=== PATIENT | female | born 1970 | race Caucasian/White ===

== ENCOUNTER 2020-09-30 07:03 | Outpatient (REF) | payer OTHER, SELFPAY ==
[2020-09-30 08:06] LABS: Alanine Aminotransferase 27 U/L (0-31); Albumin Level 4.6 g/dL (3.5-5.0); Alkaline Phosphatase 90 U/L (39-117); Anion Gap 12 (12-20); Aspartate Amino Transferase 27 U/L (5-31); Bilirubin Total 0.6 mg/dL (0.0-1.0); Blood Urea Nitrogen 17 mg/dL (9-16); C Reactive Protein 0.66 mg/dL (< or = 0.50); Calcium 9.6 mg/dL (8.4-10.2); Carbon Dioxide 27 mmol/L (22-29); Chloride 106 mmol/L (96-108); Cholesterol 196 mg/dL; Estimated Glomerular Filt Rate > 60; Glucose Fasting 91 mg/dL (60-99); HDL Cholesterol 86 mg/dL; LDL Cholesterol Calculated 99 mg/dl; Potassium 4.2 mmol/L (3.3-5.1); Sodium 141 mmol/L (135-145); Total Protein 7.8 g/dL (6.5-8.0); Triglycerides 55 mg/dL
[2020-09-30 08:17] LABS: Vitamin D 25-OH Total 29.6 ng/mL (>30)
[2020-10-01 08:57] LABS: Thyroid Peroxidase Antibodies 522 IU/mL (<9)
== END 2020-09-30 07:04 | disposition home or self-care (01) ==
LOC: HO.LAB 07:03
PROVIDERS: PCP Internal Medicine; Visit Provider Internal Medicine
DX: Z00.00 Encounter for general adult medical examination without abnormal findings (principal); E55.9 Vitamin D deficiency, unspecified; R21 Rash and other nonspecific skin eruption
CPT/HCPCS: 36415; 80053; 80061; 82306; 84443; 86140; 86376

== ENCOUNTER 2020-10-02 16:15 | Outpatient (REF) | payer OTHER, SELFPAY ==
[2020-10-02 17:10] LABS: MANUAL DIFF FLAG NO
[2020-10-02 17:13] LABS: Basophils Absolute Auto 0.1 X10*3/uL (0.0-0.2); Basophils Percent Auto 0.7 % (0-2); Eosinophils Absolute Auto 0.5 X10*3/uL (0.0-0.4); Eosinophils Percent Auto 6.8 % (0-4); Hematocrit 40.7 % (37-47); Hemoglobin 13.4 g/dl (12.0-16.0); Imm Gran Abs Auto 0.01 X10*3/uL (0.00-0.03); Imm Gran Pct Auto 0.1 % (0.0-0.4); Lymphocytes Absolute Auto 2.6 X10*3/uL (1.2-4.9); Mean Corpuscular HGB Conc 32.9 g/dl (31.0-35.0); Mean Corpuscular Hemoglobin 29.8 pg (27.0-33.0); Mean Corpuscular Volume 90.6 fL (80-98); Mean Platelet Volume 10.2 fL (9.4-12.3); Monocytes Absolute Auto 0.4 X10*3/uL (0.1-1.2); Monocytes Percent Auto 6.2 % (2-11); Neutrophils Absolute Auto 3.3 X10*3/uL (2.0-8.3); Neutrophils Percent Auto 48.2 % (45-73); Platelet Count 268 X10*3/uL (160-400); Red Blood Count 4.49 X10*6/uL (4.20-5.50); Red Cell Distribution Width 12.3 % (11.0-16.0); White Blood Count 6.8 X10*3/uL (4.8-10.8)
[2020-10-02 17:31] LABS: Rheumatoid Factor < 15.0 IU/mL (<15.0)
[2020-10-02 18:01] LABS: Vitamin B12 575 pg/mL (200-900)
[2020-10-02 18:24] LABS: Erythrocyte Sedimentation Rate 12 MM/HR (0-20)
[2020-10-03 13:32] LABS: Anti Nuclear Antibody Screen NEGATIVE (NEGATIVE)
== END 2020-10-02 16:16 | disposition home or self-care (01) ==
LOC: HO.LAB 16:15
PROVIDERS: PCP Internal Medicine; Visit Provider Internal Medicine
DX: R53.83 Other fatigue (principal); R63.5 Abnormal weight gain; E06.9 Thyroiditis, unspecified
CPT/HCPCS: 36415; 82607; 84439; 85025; 85652; 86038; 86039; 86431

== ENCOUNTER 2020-10-10 07:56 | Outpatient (REF) | payer OTHER, SELFPAY ==
--- NOTE | ~2020-10-10 | MM_ITS ---
EXAMINATION: MM SCREENING DIGITAL BREAST TOMOSYNTHESIS, BILATERAL CLINICAL INFORMATION: Screening. Asymptomatic. The lifetime risk of breast cancer based on the Tyrer-Cuzick Model is 13%. COMPARISON: Mammography: 10/25/2018, 12/17/2013 TECHNIQUE: Digital breast tomosynthesis is performed in both the craniocaudal and mediolateral oblique views along with computer-aided detection (CAD). Synthesized 2D images are generated from the tomosynthesis. FINDINGS: The breasts are heterogeneously dense, which may obscure small masses (ACR BI-RADS breast composition Category c). Parenchymal pattern is similar to prior exams. Breast tissue composition borders on average fibroglandular. There is no interval mass or architectural abnormality. Again, there are chronic calcifications anterior central and upper outer right breast. No significant changes. The skin contours are smooth. MM/MM tomosynthesis screening BI IMPRESSION: No significant changes from prior exams. ASSESSMENT: BI-RADS 2: Benign RECOMMENDATION: Routine annual mammography screening. This patient's information was entered into a reminder system with a target due date for their next mammogram.
== END 2020-10-10 07:57 | disposition home or self-care (01) ==
LOC: HO.MAMMO 07:56
PROVIDERS: PCP Internal Medicine; Visit Provider Internal Medicine
DX: Z12.31 Encounter for screening mammogram for malignant neoplasm of breast (principal)
CPT/HCPCS: 77063; 77067

== ENCOUNTER → 2020-10-22 10:32 | Outpatient (REF) | payer OTHER, SELFPAY ==
--- NOTE | ~2020-10-22 | NM_ITS ---
EXAMINATION: NM THYROID UPTAKE AND SCAN CLINICAL INFORMATION: Acute thyroiditis. COMPARISON: No pertinent studies to compare. TECHNIQUE: Following the oral administration of 272 microcuries of I-123 sodium iodide, thyroid uptake was performed and expressed as a percentage of the administrated dose. Gamma scintillation camera images of the thyroid in the anterior and right and left anterior oblique views were obtained using a pinhole collimator following the administration of 10 mCi Tc-99m pertechnetate. FINDINGS: The uptake is 9.5% at 3.8 hours and 24% at 22.4 hours. Imaging the gland demonstrates a homogeneous appearance to the gland. No convincing evidence for defect. NM/NM thyroid w uptake IMPRESSION: Homogeneous-appearing gland. Uptakes are within normal limits. Correlation recommended clinically. Recovering thyroiditis would be a consideration.
== END ==
LOC: HO.NUCMED 10:32
PROVIDERS: PCP Internal Medicine; Visit Provider Internal Medicine
DX: E06.0 Acute thyroiditis (principal)
CPT/HCPCS: 78014; A9512; A9516

== ENCOUNTER 2020-10-31 15:17 | Outpatient (REF) | payer OTHER, SELFPAY ==
[2020-11-01 10:41] LABS: CT PCR NOT DETECTED (Not Detect.); NG PCR NOT DETECTED (Not Detect.)
[2020-11-01 11:58] LABS: BV Int Neg Control Negative (Negative); BV Int Pos Control Positive (Positive)
[2020-11-05 20:52] LABS: HPV mRNA E6/E7 rflx Not Detected (Not Detected)
== END 2020-10-31 15:18 | disposition home or self-care (01) ==
LOC: HO.LAB 15:17
PROVIDERS: Visit Provider Obstetrics & Gynecology
DX: Z30.433 Encounter for removal and reinsertion of intrauterine contraceptive device (principal); Z20.2 Contact with and (suspected) exposure to infections with a predominantly sexual mode of transmission
CPT/HCPCS: 58301; 87480; 87491; 87510; 87591; 87624; 87660; 88142

== ENCOUNTER → 2020-12-17 07:53 | Outpatient (BNVA) | payer OTHER, SELFPAY | PROVIDERS: PCP Internal Medicine; Visit Provider Nurse Practitioner Family ==

== ENCOUNTER 2021-02-17 06:20 | Day surgery (SDC) | payer OTHER, SELFPAY ==
[2021-02-10 14:43] VITALS: BMI 33.9
--- NOTE | 2021-02-16 10:04 | P.CONAN_ITS ---
Documented by User: Angie Mcneil NP 02/16/21 10:04 HPI - Anesthesia Eval Consult details Narrative: 50yo F for Colonoscopy [facility] [place] Past Medical History Medical History (Updated 02/17/21 @ 06:27 by Autumn Ribeiro RN) Asthma Thyroiditis Family History Family History Maternal Grandmother Breast cancer Maternal Grandfather Lymphoma Surgical History Surgical History Hx of section Social History Social History Alcohol intake: current Alcohol intake frequency: 0-2 drinks per day Alcohol type: wine Advance Directives Information Provided: No Gender identity: Female Meds Allergies Allergy/AdvReac Type Severity Reaction Status Date / Time fish Allergy Intermediate throat and Uncoded 02/17/21 06:26 tongue swelling some fruits and nuts Allergy Unknown Unknown Uncoded 02/17/21 06:26 Home Medications Medication Instructions Recorded Confirmed Last Taken Type albuterol sulfate 90 mcg/actuation 90 mcg INHALATION Q4-6H PRN 10/31/20 02/10/21 Unknown History aerosol inhaler cetirizine 10 mg tablet (24Hour 10 mg PO DAILY PRN 12/17/20 02/10/21 Unknown History Allergy) cholecalciferol (vitamin D3) 125 125 mcg PO DAILY 12/17/20 02/10/21 Unknown History mcg (5,000 unit) capsule (Dialyvite Vitamin D) epinephrine 0.3 mg/0.3 mL 0.3 mg IM DIRECTED 12/17/20 02/10/21 Unknown History injection, auto-injector [id number] 3.5 3 drp OTIC (EARS) ml 12/17/20 Unknown History mg-10,000 unit/mL-1 % ear drops,susp Exam Exam Date and Time: February 16, 2021 1004 Height,Weight and Vital Signs: Height 5 ft 5 in Weight 92.533 kg Pertinent Lab Results Pertinent Lab Results: Laboratory Tests 09/30/20 10/02/20 07:25 16:38 WBC 6.8 Hgb 13.4 Hct 40.7 Plt Count 268 Sodium 141 Potassium 4.2 Chloride 106 Carbon Dioxide 27 BUN 17 H Creatinine 0.77 Airway Adult Head Mouth w/Numbe Teeth: 1. Implants, glued Assessment and Plan Assessment Anesthesia Assessment: Chart Reviewed Documented by User: Santo Minaya MD 02/17/21 07:40 [facility] [place] Past Medical History Medical History (Updated 02/17/21 @ 06:27 by Autumn Ribeiro RN) Asthma Thyroiditis Family History Family History Maternal Grandmother Breast cancer Maternal Grandfather Lymphoma Family history of problems with anesthesia: No Surgical History Surgical History Hx of section History of Problems with Anesthesia: No Social History Social History Alcohol intake: current Alcohol intake frequency: 0-2 drinks per day Alcohol type: wine Advance Directives Information Provided: No Gender identity: Female Meds Allergies Allergy/AdvReac Type Severity Reaction Status Date / Time fish Allergy Intermediate throat and Uncoded 02/17/21 06:26 tongue swelling some fruits and nuts Allergy Unknown Unknown Uncoded 02/17/21 06:26 Home Medications Medication Instructions Recorded Confirmed Last Taken Type albuterol sulfate 90 mcg/actuation 90 mcg INHALATION Q4-6H PRN 10/31/20 02/10/21 Unknown History aerosol inhaler cetirizine 10 mg tablet (24Hour 10 mg PO DAILY PRN 12/17/20 02/10/21 Unknown History Allergy) cholecalciferol (vitamin D3) 125 125 mcg PO DAILY 12/17/20 02/10/21 Unknown History mcg (5,000 unit) capsule (Dialyvite Vitamin D) epinephrine 0.3 mg/0.3 mL 0.3 mg IM DIRECTED 12/17/20 02/10/21 Unknown History injection, auto-injector [id number]-cwasztkny 3.5 3 drp OTIC (EARS) ml 12/17/20 Unknown History mg-10,000 unit/mL-1 % ear drops,susp Exam Airway Mallampati Class: I TM Dist: >3cm Neck ROM: Full Adult Head Mouth w/Numbe Teeth: 2 1. Implants, glued Heart: RRR Assessment and Plan Assessment Anesthesia Assessment: Anesthesia Plan Discussed Final Anesthetic Review Family History of Problems with Anesthesia: No History of Problems with Anesthesia: No NPO: Yes ASA Class: II Final Preanesthetic Review: No Changes in Pt Med Stat, Meds/Allgs Chart Reviewed, Consent Obtained/Reviewed and Anes Risks/Benef Reviewed Patient Risk: Low Procedure Risk: Low Anesthetic Plan Anesthetic Plan: MAC: Disposition: Standard PACU
[2021-02-17 06:42] VITALS: BP 137/78; PULSE 66; RESP 16; TEMP 36.6; O2SAT 98
[2021-02-17] MEDS: Lactated Ringers 1,000 ML 100 ML IVCONT (06:50)
--- NOTE | 2021-02-17 07:32 | MHC.SHP ---
Pre-Procedural Eval Section A Date of Service: 02/17/21 The patient is an INPATIENT: No The History & Physical has been completed within 30 days and I have reviewed it.: No Section B Chief Complaint: screening Details of Present Illness: Colon cancer screening, chronic constipation, FH of colon polyps Relevant Family History (Specify if Yes): Yes Relevant Social History: None Present Medications: see Short Stay Collaborative assessment Medical History: Significant History (asthma) History of Previous Operations: Relevant previous surgery/procedure and date(s) (Status post ) Allergies: Allergies Allergy/AdvReac Type Severity Reaction Status Date / Time fish Allergy Intermediate throat and Uncoded 02/17/21 06:26 tongue swelling some fruits and nuts Allergy Unknown Unknown Uncoded 02/17/21 06:26 Review of Systems Sugical H&P ROS: Negative: Constitution, Cardiovascular and Respiratory and Yes, Specify: Gastrointestinal (constipation) Exam Surgical H&P Exam: Normal: Heart, Normal: Lungs, Normal: Extremities and Normal: Abdomen Plan Diagnosis/Plan: Unchanged I have reviewed the history and physical and performed a pertinent physical examination on my patient. No changes have occurred unless specified.
--- NOTE | 2021-02-17 07:47 | PM.OP ---
Brief Operative Note Date of Service: 02/17/21 Pre-op diagnosis: Colon cancer screening, family history of colon polyps Post-op diagnosis: other (Diverticulosis, hemorrhoids) Procedure: COLONOSCOPY TO CECUM Consent: Indications for the procedure and potential complications of bleeding, perforation, reaction to medications and missed diagnosis were discussed with the patient and informed consent was obtained. Instrument: Olympus PCF H 190 L variable stiffness pediatric colonoscope Monitoring: Vital signs and clinical assessment, intermittent blood pressure monitoring, continuous EKG monitoring, Pulse oximetry and Carbon Dioxide monitoring were done throughout the procedure. Colon withdrawl time was 21 minutes. Procedure: The patient was placed in the left lateral decubitis position and pre-procedure medications were administered. After a digital rectal examination of the ano-rectum, the video colonoscope was inserted into the rectum and advanced through the colon to the cecum. The colonoscope was slowly withdrawn in a retrograde panoramic fashion and the colon mucosa was carefully examined including a retroflexed view of the rectum. Findings and interventions are described below. Procedure Difficulty: Colon was long and tortuous and there was recurrent loop formation. Patient was placed in the supine position and left lower quadrant pressure was applied to intubate the transverse colon. Findings: Terminal Ileum: Not evaluated Cecum: Normal Ascending Colon: Normal Transverse Colon: Normal Descending Colon: Normal Sigmoid Colon: Moderate diverticulosis Rectum: Normal Ano-rectum: Moderate internal hemorrhoids Colon preparation: Good after copious irrigation Impression and Post Procedure Diagnosis: Colonoscopy Findings: No polyps were detected Moderate diverticulosis seen in the sigmoid colon Moderate hemorrhoids on retroflexed exam. Plan: Patient has an appointment on 03/03/21 in the GI Clinic with Alondra Bernard FNP-BC . Repeat Colonoscopy in 5 years due to family history of colon polyps (Dad). Adult colonoscope for future colonoscopies Above findings were reviewed with the patient and diverticulosis handout was given in the discharge area Surgeon: Suzanne Ware MD Anesthesia: MAC (Darshana Patino CRNA) Was an Diesel Engine Specialist used for this Procedure?: Yes Diesel Engine Specialist: Lilia Gallagher Estimated blood loss (mL): 0 Pathology: none sent Condition: stable Disposition: PACU
--- NOTE | 2021-02-17 08:37 | P.OP_ITS ---
Operative Note Operative Note Date of Service: 02/17/21 Narrative: Pre-op diagnosis:?Colon cancer screening, family history of colon polyps Post-op diagnosis:?other (Diverticulosis, hemorrhoids) Procedure:? COLONOSCOPY TO CECUM Consent: Indications for the procedure and potential complications of bleeding, perforation, reaction to medications and missed diagnosis were discussed with the patient and informed consent was obtained. Instrument: Olympus PCF H 190 L variable stiffness pediatric colonoscope Monitoring: Vital signs and clinical assessment, intermittent blood pressure monitoring, continuous EKG monitoring, Pulse oximetry and Carbon Dioxide monitoring were done throughout the procedure. Colon withdrawl time was 21 minutes. Procedure: The patient was placed in the left lateral decubitis position and pre-procedure medications were administered. After a digital rectal examination of the ano-rectum, the video colonoscope was inserted into the rectum and advanced through the colon to the cecum. The colonoscope was slowly withdrawn in a retrograde panoramic fashion and the colon mucosa was carefully examined including a retroflexed view of the rectum. Findings and interventions are described below. Procedure Difficulty:? Colon was long and tortuous and there was recurrent loop formation. Patient was placed in the supine position and left lower quadrant pressure was? applied to intubate the transverse colon. Findings: Terminal Ileum: Not evaluated Cecum:? Normal Ascending Colon:? Normal Transverse Colon:? Normal Descending Colon:? Normal Sigmoid Colon:? Moderate diverticulosis Rectum:? Normal Ano-rectum:? Moderate internal hemorrhoids Colon preparation:? Good? after copious irrigation Impression and Post Procedure Diagnosis: Colonoscopy Findings: No polyps were detected Moderate diverticulosis seen in the sigmoid colon Moderate hemorrhoids on retroflexed exam. Plan: Patient has an appointment on 03/03/21 in the GI Clinic with ? Alondra Bernard FNP-BC . Repeat Colonoscopy in 5 years due to family history of colon polyps (Dad). Adult colonoscope for future colonoscopies Above findings were reviewed with the patient and? diverticulosis handout was given in the discharge area Surgeon:?Suzanne Ware MD Anesthesia:?MAC (Darshana Patino, TAYLOR) Was an Distribution Field Engineer used for this Procedure?:?Yes Distribution Field Engineer:?Lilia Gallagher Estimated blood loss (mL):?0 Pathology:?none sent Condition:?stable Disposition:?PACU
[2021-02-17 08:38] VITALS: BP 104/59; PULSE 78; RESP 16; TEMP 36.1; O2SAT 98
[2021-02-17 08:53] VITALS: BP 109/61; PULSE 69; RESP 16; O2SAT 99
== END 2021-02-17 09:18 | disposition home or self-care (01) ==
PROVIDERS: PCP Internal Medicine Geriatric Medicine; Visit Provider Internal Medicine Gastroenterology
PROC: 0DJD8ZZ Inspection of Lower Intestinal Tract, Via Natural or Artificial Opening Endoscopic (ICD-10-PCS; CPT 45378; principal; 2021-02-17 07:30)
DX: Z12.11 Encounter for screening for malignant neoplasm of colon (principal); Z83.71 Family history of colonic polyps; K57.30 Diverticulosis of large intestine without perforation or abscess without bleeding; K64.8 Other hemorrhoids; J45.909 Unspecified asthma, uncomplicated; Z79.899 Other long term (current) drug therapy
CPT/HCPCS: 45378

== ENCOUNTER 2021-10-26 15:00 | Outpatient (REF) | payer OTHER, SELFPAY ==
--- NOTE | ~2021-10-26 | MM_ITS ---
EXAMINATION: MM SCREENING DIGITAL BREAST TOMOSYNTHESIS, BILATERAL CLINICAL INFORMATION: Screening. Asymptomatic. The lifetime risk of breast cancer based on the Tyrer-Cuzick Model is 12%. COMPARISON: Mammography: 10/10/2020, 11/13/2018, 12/17/2013 TECHNIQUE: Digital breast tomosynthesis is performed in both the craniocaudal and mediolateral oblique views along with computer-aided detection (CAD). Synthesized 2D images are generated from the tomosynthesis. Additional left MLO view is provided. FINDINGS: The breasts are heterogeneously dense, which may obscure small masses (ACR BI-RADS breast composition Category c). There are diffuse calcifications central and upper outer right breast similar to prior studies including magnification views from 2014. Parenchymal pattern is similar to prior studies and there is no developing density or interval architectural abnormality. There are some scattered punctate calcifications on the left. The axilla and skin contours are unremarkable. MM/MM tomosynthesis screening BI IMPRESSION: No significant changes from prior studies. ASSESSMENT: BI-RADS 2: Benign RECOMMENDATION: Routine annual mammography screening. This patient's information was entered into a reminder system with a target due date for their next mammogram.
== END 2021-10-26 15:01 | disposition home or self-care (01) ==
LOC: HO.MAMMO 15:00
PROVIDERS: PCP Internal Medicine; Visit Provider Internal Medicine
DX: Z12.31 Encounter for screening mammogram for malignant neoplasm of breast (principal)
CPT/HCPCS: 77063; 77067

== ENCOUNTER → 2021-11-03 08:11 | Outpatient (BNVA) | payer OTHER, SELFPAY | PROVIDERS: Visit Provider Obstetrics & Gynecology | DX: Z01.419 Encounter for gynecological examination (general) (routine) without abnormal findings (principal) ==

== ENCOUNTER 2022-10-28 07:58 | Outpatient (REF) | payer OTHER, SELFPAY ==
--- NOTE | ~2022-10-28 | MM_ITS ---
EXAMINATION: BONE DENSITOMETRY CLINICAL INDICATION: Menopause. COMPARISON: None (current study represents initial baseline exam). TECHNIQUE: Using a [employer] DXA System (software version: 13.1) manufactured by [employer], dual-energy x-ray absorptiometry was performed of the lumbar spine and left hip. The images are of good technical quality. Summary results are attached. FINDINGS: AP SPINE L1-L4: BMD 1.120 g/cm2, Z-score -0.8, T-score -0.5, normal. LEFT FEMUR, NECK: BMD 1.033 g/cm2, Z-score 0.3, T-score 0.0, normal. LEFT FEMUR, TOTAL: BMD 1.104 g/cm2, Z-score 0.7, T-score 0.8, normal. IDENTIFIED RISK FACTORS: Menopause. HISTORY OF FRACTURE: None listed. MEDICATIONS: Vitamin D. MM/XR DEXA axial skeleton IMPRESSION: 1. DIAGNOSIS: Normal bone density based on the lowest T-score value of -0.5 in the lumbar spine applying World Health Organization criteria. 2. 10-YEAR FRACTURE RISK PREDICTION, FRAX: According to the guidelines, FRAX calculation should only be performed on patients in the osteopenia bone density category. Therefore, FRAX was not performed on this patient. 3. Treatment Recommendations: NOF guidelines recommend consideration for treatment in postmenopausal women and men age 50 and older presenting with the following: -A hip or vertebral (clinical or morphometric) fracture. -T-score less than or equal to -2.5 at the femoral neck or spine after appropriate evaluation to exclude secondary causes. -Low bone mass at the hip or spine and a 10-year fracture probability by FRAX of greater than or equal to 3% for hip fracture or greater than or equal to 20% for major osteoporotic fracture based on the [place] adapted WHO algorithm. 4. Other Recommendations: All treatment decisions require clinical judgment and consideration of individual patient factors, including patient preferences, comorbidities, previous drug use, risk factors not captured in the FRAX model (e.g. frailty, falls, vitamin D deficiency, increased bone turnover, interval significant decline in bone density) and possible under or overestimation of fracture risk by FRAX. FUTURE SCAN RECOMMENDATION: People with diagnosed cases of osteoporosis or at high risk for fracture should have regular bone mineral density tests. For patients eligible for Medicare, routine testing is allowed once every 2 years. The testing frequency can be increased to one year for patients who have rapidly progressing disease, those who are receiving or discontinuing medical therapy to restore bone mass, or have additional risk factors.
--- NOTE | ~2022-10-28 | MM_ITS ---
EXAMINATION: MM SCREENING DIGITAL BREAST TOMOSYNTHESIS, BILATERAL CLINICAL INFORMATION: Screening. Asymptomatic. The lifetime risk of breast cancer based on the Tyrer-Cuzick Model is 12%. COMPARISON: Mammography: October 26, 2022 and studies dating back to September 15, 2011 TECHNIQUE: Digital breast tomosynthesis is performed in both the craniocaudal and mediolateral oblique views along with computer-aided detection (CAD). Synthesized 2D images are generated from the tomosynthesis. FINDINGS: The breasts are heterogeneously dense, which may obscure small masses (ACR BI-RADS breast composition Category c). There are no significant masses, abnormal calcifications, or other abnormalities. MM/MM tomosynthesis screening BI IMPRESSION: No significant changes from prior exam. ASSESSMENT: BI-RADS 1: Negative RECOMMENDATION: Routine annual mammography screening. This patient's information was entered into a reminder system with a target due date for their next mammogram.
== END 2022-10-28 07:59 | disposition home or self-care (01) ==
LOC: HO.MAMMO 07:58
PROVIDERS: PCP Internal Medicine; Visit Provider Internal Medicine
DX: Z12.31 Encounter for screening mammogram for malignant neoplasm of breast (principal); Z13.820 Encounter for screening for osteoporosis; Z78.0 Asymptomatic menopausal state
CPT/HCPCS: 77063; 77067; 77080

== ENCOUNTER 2022-11-02 07:30 | Outpatient (REF) | payer OTHER, SELFPAY ==
[2022-11-02 08:05] LABS: Hematocrit 43.8 % (37.0-47.0); Hemoglobin 14.7 g/dl (12.0-16.0); Mean Corpuscular HGB Conc 33.6 g/dl (31.0-35.0); Mean Corpuscular Hemoglobin 29.7 pg (27.0-33.0); Mean Corpuscular Volume 88.5 fL (80.0-98.0); Mean Platelet Volume 9.3 fL (9.4-12.3); Platelet Count 290 X10*3/uL (160-400); Red Blood Count 4.95 X10*6/uL (4.20-5.50); Red Cell Distribution Width 12.1 % (11.0-16.0); White Blood Count 5.2 X10*3/uL (4.8-10.8)
[2022-11-02 12:11] LABS: Alanine Aminotransferase 19 U/L (0-31); Albumin Level 4.5 g/dL (3.5-5.0); Alkaline Phosphatase 103 U/L (39-117); Anion Gap 12 (12-20); Aspartate Amino Transferase 21 U/L (5-31); Blood Urea Nitrogen 13 mg/dL (9-16); Calcium 9.7 mg/dL (8.4-10.2); Carbon Dioxide 26 mmol/L (22-29); Chloride 107 mmol/L (96-108); Cholesterol 219 mg/dL; Estimated Glomerular Filt Rate > 60; Glucose Random 100 mg/dL (60-115); HDL Cholesterol 90 mg/dL; Iron 151 mcg/dL (30-160); LDL Cholesterol Calculated 114 mg/dl; Percent Iron Saturation 46 % (15-50); Sodium 141 mmol/L (135-145); Total Iron Binding Capacity 329 mcg/dL (228-428); Total Protein 7.6 g/dL (6.5-8.0); Triglycerides 76 mg/dL; Unsaturated Iron Binding 178 ug/dL
[2022-11-02 12:35] LABS: Ferritin 55 ng/mL (10-250); TSH reflex Free T4 2.19 uIU/mL (0.32-4.0); Vitamin D 25-OH Total 29.4 ng/mL (>30)
[2022-11-04 08:58] LABS: Follicle Stimulating Hormone 84.8 mIU/mL; Lutenizing Hormone 40.8 mIU/mL
[2022-11-04 09:59] LABS: Thyroglobulin Antibodies <1 IU/mL (< or = 1)
[2022-11-04 17:09] LABS: Homocysteine 6.7 umol/L (<10.4)
[2022-11-05 13:14] LABS: Thyroid Peroxidase Antibodies 313 IU/mL (<9)
[2022-11-08 11:03] LABS: Apolipoprotein A1 228 mg/dL (>=125); Apolipoprotein B 86 mg/dL (<90)
[2022-11-09 13:38] LABS: Progesterone <0.1 ng/mL
[2022-11-09 14:43] LABS: Lipoprotein A 53 nmol/L (<75)
[2022-11-10 15:29] LABS: Testosterone, Free 3.1 pg/mL (0.1-6.4); Testosterone, Total 32 ng/dL (2-45)
[2022-11-11 04:54] LABS: Dihydrotestosterone 13 ng/dL (< OR = 20)
[2022-11-12 22:43] LABS: Estradiol Free 0.12 pg/mL; Estradiol, Ultrasensitive 10 pg/mL
== END 2022-11-02 07:31 | disposition home or self-care (01) ==
LOC: HO.LAB 07:30
PROVIDERS: PCP Internal Medicine; Visit Provider Internal Medicine
DX: E03.9 Hypothyroidism, unspecified (principal); I51.9 Heart disease, unspecified; F32.81 Premenstrual dysphoric disorder; E72.10 Disorders of sulfur-bearing amino-acid metabolism, unspecified; E11.9 Type 2 diabetes mellitus without complications; E55.9 Vitamin D deficiency, unspecified; D64.9 Anemia, unspecified; E78.5 Hyperlipidemia, unspecified; K76.0 Fatty (change of) liver, not elsewhere classified; R53.83 Other fatigue; N95.9 Unspecified menopausal and perimenopausal disorder; E78.9 Disorder of lipoprotein metabolism, unspecified
CPT/HCPCS: 36415; 80053; 80061; 82172; 82306; 82642; 82670; 82681; 82728; 83001; 83002; 83090; 83540; 83695; 84144; 84402; 84403; 84443; 85027; 86376; 86800

== ENCOUNTER → 2022-11-08 08:44 | Outpatient (BNVA) | payer OTHER, SELFPAY | PROVIDERS: PCP Internal Medicine; Visit Provider Obstetrics & Gynecology ==

== ENCOUNTER 2023-11-04 07:23 | Outpatient (REF) | payer OTHER, SELFPAY ==
--- NOTE | ~2023-11-04 | MM_ITS ---
EXAMINATION: MM SCREENING DIGITAL BREAST TOMOSYNTHESIS, BILATERAL CLINICAL INFORMATION: Screening. Asymptomatic. COMPARISON: Mammography: 10/28/2022, 10/26/2021, and dating back to 2012. TECHNIQUE: Digital breast tomosynthesis is performed in both the craniocaudal and mediolateral oblique views along with computer-aided detection (CAD). Synthesized 2D images are generated from the tomosynthesis. FINDINGS: The breasts are heterogeneously dense, which may obscure small masses (ACR BI-RADS breast composition Category c). There are scattered calcifications within the dense breast parenchyma both breasts, right greater than left, most likely reflecting adenosis or apocrine metaplasia. No suspicious grouping or pleomorphism is evident. This finding is unchanged from numerous prior exams dating back to 2013. No suspicious masses, or areas of architectural distortion identified. The overall parenchymal pattern is unchanged from the prior exams. No skin or axillary abnormalities. MM/MM tomosynthesis screening BI IMPRESSION: No mammographic evidence of malignancy. No significant interval change. ASSESSMENT: BI-RADS BI-RADS 2 - Benign Findings RECOMMENDATION: Routine annual mammography screening. 1 year F/U This examination should not preclude the clinical evaluation of a suspicious palpable abnormality. This patient's information was entered into a reminder system with a target due date for their next mammogram.
== END 2023-11-04 07:24 | disposition home or self-care (01) ==
LOC: HO.MAMMO 07:23
PROVIDERS: PCP Internal Medicine; Visit Provider Internal Medicine
DX: Z12.31 Encounter for screening mammogram for malignant neoplasm of breast (principal)
CPT/HCPCS: 77063; 77067

== ENCOUNTER → 2023-11-04 07:30 | Outpatient (BNV) | payer OTHER, SELFPAY | PROVIDERS: PCP Internal Medicine; Visit Provider Radiology Diagnostic Radiology | DX: Z12.31 Encounter for screening mammogram for malignant neoplasm of breast (principal) | CPT/HCPCS: 77063; 77067 ==

== ENCOUNTER 2023-11-14 08:34 | Outpatient (AMB) | payer OTHER, SELFPAY ==
--- NOTE | 2023-11-14 08:35 | MHC.OFFVIS ---
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 No complaints. Last Pap/HPV was negative in 11/14 Last Mammogram was done on 11/04/2023, the report still pending Last Colonoscopy was done 02/14, the recommendation was to repeat in 5 years [facility] Medical History FEDE II (cervical intraepithelial neoplasia II) Thyroiditis Asthma Surgical History Hx of section Family History Maternal Grandmother Breast cancer Maternal Grandfather Lymphoma Social History Household Members: None Housing: House Alcohol intake: current Alcohol intake frequency: 0-2 drinks per day Alcohol type: wine Patient Tobacco Use Status: Never used Tobacco Current occupational status: employed 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 Sexually active: No Sexual orientation: Straight/Heterosexual Gender identity: Female Female Reproductive History Menstrual Age of Menarche: 12 Menopause type: natural Total pregnancies: 2 Full term: 2 Number of Living Children: 2 Date of last pap smear: 11/03/20 Date of Mammogram: 11/04/23 Review of Systems Const All systems reviewed & are unremarkable except as noted in HPI and below Card Reports as per HPI Resp Reports as per HPI GI Reports as per HPI and Reports no additional complaints Reports as per HPI Physical Exam Vital Signs: BMI result Body Mass Index 34.4 Const General: cooperative, healthy appearing and comfortable Chest Chest palpation & inspection: normal inspection of the chest and normal palpation of entire chest wall Breast/axilla inspection: normal inspection of the breasts and normal inspection of the axillae Breast/axilla palpation: normal palpation of the breasts, normal palpation of the axillae and no axillary lymphadenopathy Resp Effort & Inspection: normal respiratory effort Auscultation: clear to auscultation bilaterally Percussion: percussion normal Cardio Palpation: normal PMI Rate: regular rate Rhythm: regular rhythm Heart sounds: no murmurs and no rubs Peripheral pulses: Peripheral pulses 2+ throughout GI Inspection: Yes normal to inspection Palpation (GI): Soft to palpation, nontender, no guarding, not rigid and No hepatosplenomegaly present Percussion: Yes normal to percussion Auscultation: normal bowel sounds Rectal Exam - Female: deferred General: Yes bladder normal to palpation External Female Exam: No lesion Speculum Exam - Vagina: normal appearance of the vagina, normal palpation, normal vaginal discharge and not erythematous Speculum Exam - Cervix: normal appearance of the cervix and normal palpation Bimanual exam- vagina & uterus: normal bimanual exam, normal palpation, uterine size normal, bladder normal to palpation, consistency normal and normal palpation Bimanual Exam- Adnexa, other: normal adnexae, no masses and no tenderness Assessment & Plan Assessment & Plan (1) Well woman exam: Comment: History of FEDE 2 status post LEEP in 2012 Code(s): Z01.419 - Encounter for gynecological examination (general) (routine) without abnormal findings Category: Medical Plan: Co testing done since the patient has FEDE 2 status post LEEP in 2012. Counseled the patient about the recommended dietary allowance of 1200 mg of Calcium & 600 IU of vitamin D. Instructions given the patient to schedule next screening Mammogram in 11/18. The patient was instructed to perform monthly self-breast exams and schedule annual exam in a year. All questions answered and the patient verbalized understanding. Coding Level of Care Code Est Pt Level 3 (70451) Est Pt Prev Care 40-64y(34289) Diagnoses Well woman exam Z01.419
[2023-11-14 08:49] VITALS: BP 110/70; BMI 34.4
== END 2023-11-14 09:57 | disposition home or self-care (01) ==
LOC: HO.HWS 08:34
PROVIDERS: PCP Internal Medicine; Visit Provider Obstetrics & Gynecology
DX: Z01.419 Encounter for gynecological examination (general) (routine) without abnormal findings (principal)
CPT/HCPCS: 99396

== ENCOUNTER 2023-11-14 08:34 | Outpatient (REF) | payer OTHER, SELFPAY ==
[2023-11-18 15:33] LABS: HPV mRNA E6/E7 rflx Not Detected (Not Detected)
== END 2023-11-14 08:35 | disposition home or self-care (01) ==
LOC: HO.LNP 08:34
PROVIDERS: PCP Internal Medicine; Visit Provider Obstetrics & Gynecology
DX: Z01.419 Encounter for gynecological examination (general) (routine) without abnormal findings (principal); Z11.51 Encounter for screening for human papillomavirus (HPV)
CPT/HCPCS: 87624; 88142

== ENCOUNTER 2023-12-01 15:58 | Outpatient (REF) | payer OTHER, SELFPAY ==
--- NOTE | ~2023-12-01 | XR_ITS ---
EXAMINATION: XR THORACIC SPINE XR LUMBAR SPINE CLINICAL INFORMATION: Back pain. COMPARISON: None available. TECHNIQUE: 3 views of the thoracic spine. 3 views of the lumbar spine. FINDINGS: THORACIC SPINE: Multilevel degenerative changes in the thoracic spine with prominent multilevel osteophytes. No gross thoracic vertebral body compression fractures are appreciated. Minimal S-shaped scoliosis of the thoracic spine. LUMBAR SPINE: Mild dextroscoliosis of the lumbar spine. Facet arthritis in the lower lumbar spine. Mild multilevel lumbar spondylosis with loss of disc space height at L3-L4, L4-L5 and L5-S1. XR/XR lumbar spine 2-3V IMPRESSION: 1. Multilevel degenerative changes in the thoracic spine. 2. Mild multilevel lumbar spondylosis with loss of disc space height at L3-L4, L4-L5 and L5-S1.
--- NOTE | ~2023-12-01 | XR_ITS ---
EXAMINATION: XR THORACIC SPINE XR LUMBAR SPINE CLINICAL INFORMATION: Back pain. COMPARISON: None available. TECHNIQUE: 3 views of the thoracic spine. 3 views of the lumbar spine. FINDINGS: THORACIC SPINE: Multilevel degenerative changes in the thoracic spine with prominent multilevel osteophytes. No gross thoracic vertebral body compression fractures are appreciated. Minimal S-shaped scoliosis of the thoracic spine. LUMBAR SPINE: Mild dextroscoliosis of the lumbar spine. Facet arthritis in the lower lumbar spine. Mild multilevel lumbar spondylosis with loss of disc space height at L3-L4, L4-L5 and L5-S1. XR/XR thoracic spine 3V IMPRESSION: 1. Multilevel degenerative changes in the thoracic spine. 2. Mild multilevel lumbar spondylosis with loss of disc space height at L3-L4, L4-L5 and L5-S1.
== END 2023-12-01 15:59 | disposition home or self-care (01) ==
LOC: HO.LAB 15:58
PROVIDERS: PCP Internal Medicine; Visit Provider Internal Medicine
DX: M54.50 Low back pain, unspecified (principal); M54.6 Pain in thoracic spine
CPT/HCPCS: 72072; 72100

== ENCOUNTER 2023-12-14 08:20 | Outpatient (REF) | payer OTHER, SELFPAY ==
[2023-12-14 11:37] LABS: MANUAL DIFF FLAG NO
[2023-12-14 11:41] LABS: Basophils Absolute Auto 0.1 X10*3/uL (0.0-0.2); Eosinophils Absolute Auto 0.7 X10*3/uL (0.0-0.4); Eosinophils Percent Auto 10.7 % (0-4); Hematocrit 42.6 % (37.0-47.0); Hemoglobin 14.2 g/dl (12.0-16.0); Imm Gran Abs Auto 0.01 X10*3/uL (0.00-0.03); Imm Gran Pct Auto 0.2 % (0.0-0.4); Lymphocytes Absolute Auto 2.4 X10*3/uL (1.2-4.9); Lymphocytes Percent Auto 38.2 % (20-40); Mean Corpuscular HGB Conc 33.3 g/dl (31.0-35.0); Mean Corpuscular Hemoglobin 29.4 pg (27.0-33.0); Mean Corpuscular Volume 88.2 fL (80.0-98.0); Mean Platelet Volume 9.5 fL (9.4-12.3); Monocytes Absolute Auto 0.5 X10*3/uL (0.1-1.2); Monocytes Percent Auto 7.5 % (2-11); Neutrophils Absolute Auto 2.7 x10*3/uL (2.0-8.3); Neutrophils Percent Auto 42.4 % (45-73); Platelet Count 310 X10*3/uL (160-400); Red Blood Count 4.83 X10*6/uL (4.20-5.50); Red Cell Distribution Width 12.6 % (11.0-16.0); White Blood Count 6.3 X10*3/uL (4.8-10.8)
[2023-12-14 12:04] LABS: Alanine Aminotransferase 20 U/L (0-31); Albumin Level 4.2 g/dL (3.5-5.0); Alkaline Phosphatase 102 U/L (39-117); Anion Gap 11 (12-20); Aspartate Amino Transferase 22 U/L (5-31); Bilirubin Total 0.5 mg/dL (0.0-1.0); Blood Urea Nitrogen 15 mg/dL (9-16); Calcium 9.3 mg/dL (8.4-10.2); Carbon Dioxide 27 mmol/L (22-29); Chloride 106 mmol/L (96-108); Cholesterol 208 mg/dL (<200); Estimated Glomerular Filt Rate > 60; Glucose Fasting 93 mg/dL (60-99); HDL Cholesterol 68 mg/dL (>40); LDL Cholesterol Calculated 127 mg/dL (<100); Potassium 3.9 mmol/L (3.3-5.1); Sodium 140 mmol/L (135-145); Total Protein 7.8 g/dL (6.5-8.0); Triglycerides 69 mg/dL (<150)
[2023-12-14 12:23] LABS: Free T4 (Free Thyroxine) 0.89 ng/dL (0.71-1.85); Thyroid Stimulating Hormone 3.16 uIU/mL (0.32-4.0); Vitamin D 25-OH Total 42.4 ng/mL (>30)
[2023-12-15 17:39] LABS: Thyroid Peroxidase Antibodies 511 IU/mL (<9)
== END 2023-12-14 08:21 | disposition home or self-care (01) ==
LOC: HO.10HDL 08:20
PROVIDERS: Visit Provider Internal Medicine
DX: E03.9 Hypothyroidism, unspecified (principal); E55.9 Vitamin D deficiency, unspecified; E78.00 Pure hypercholesterolemia, unspecified
CPT/HCPCS: 36415; 80053; 80061; 82306; 84439; 84443; 85025; 86376

== ENCOUNTER 2024-11-14 07:27 | Outpatient (REF) | payer OTHER, SELFPAY | END 2024-11-14 07:28 | disposition home or self-care (01) | LOC: HO.MAMMO 07:27 | PROVIDERS: PCP Internal Medicine; Visit Provider Internal Medicine | DX: Z12.31 Encounter for screening mammogram for malignant neoplasm of breast (principal) | CPT/HCPCS: 77063; 77067 ==

== ENCOUNTER → 2024-11-14 07:30 | Outpatient (BNV) | payer OTHER, SELFPAY | PROVIDERS: PCP Internal Medicine; Visit Provider Internal Medicine | DX: Z12.31 Encounter for screening mammogram for malignant neoplasm of breast (principal) | CPT/HCPCS: 77063; 77067 ==

== ENCOUNTER 2024-12-03 15:27 | Outpatient (AMB) | payer OTHER, SELFPAY ==
--- NOTE | 2024-12-03 15:35 | MHC.PC.OV ---
Vital Signs 12/03/24 15:41 Height 5 ft 5 in Weight 209 lb BMI 34.8 BP 122/76 Blood Pressure Location Lt brachial Position Sitting Pulse 63 Pulse Source Pulse Oximeter Temp 97.5 F Temp Source Axillary Pulse Oximetry (%) 99 Oxygen Delivery Method Room Air Intake Visit Reasons: Annual PE - see comments Machine Clothing Replacer Required: No Accompanied by: Self / Same As Patient Allergies fish Allergy (Intermediate, Uncoded 11/14/23 08:50) throat and tongue swelling some fruits and nuts Allergy (Unknown, Uncoded 11/14/23 08:50) Unknown Tobacco use date assessed: 12/03/24 Dental Screening Dental Screen Date: 12/03/24 Did you have a dental visit in the last 12 months?: Yes Did you have a dental problem in the last 6 months where you did not have access to dental care?: No [facility] Medical History FEDE II (cervical intraepithelial neoplasia II) Thyroiditis Asthma Surgical History History of colonoscopy (~02/17/21) Hx of section Family History (Updated 12/03/24 @ 15:45 by Edelmira Elmore MA) Maternal Grandmother Breast cancer Maternal Grandfather Lymphoma Mother No problems noted. Father No problems noted. 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 1. Little interest or pleasure in doing things: not at all 2. Feeling down, depressed, or hopeless: not at all 3. Trouble falling or staying asleep, or sleeping too much: not at all 4. Feeling tired or having little energy: not at all 5. Poor appetite or overeating: not at all 6. Feeling bad about yourself - or that you are a failure or have let yourself or your family down: not at all 7. Trouble concentrating on things, such as reading the newspaper or watching television: not at all 8. Moving or speaking so slowly that other people could have noticed. Or the opposite - being so fidgety or restless that you have been moving around a lot more than usual: not at all 9. Thoughts that you would be better off or of hurting yourself in some way: not at all Total score: 0 Source: Developed by Drs. Constantin Toro, Agueda Dejesus, Greg Lutz and colleagues, with an educational lynsey from [employer]. Thrive Questionnaire Date Thrive assessed: 12/03/24 I am a: Patient Within the past 12 months, did the food you bought not last and you didn't have the money to get more?: Never true Within the past 12 months, did you worry whether your food would run out before you got money to buy more?: Never true Do you have trouble paying for medicines?: No Do you have trouble getting transportation to medical appointments?: No Do you have trouble paying your heating and electricity bill?: No Do you have trouble taking care of your child, family member or friend?: No Do you have trouble with day-to-day activities such as bathing, preparing meals, shopping, managing finances, etc.?: No Are you currently unemployed and looking for a job?: No Are you interested in more education?: No THRIVE Score: 0 AUDIT C Alcohol Use Questionnaire (AUDIT-C) 1. How often do you have a drink containing alcohol?: Monthly or less 2. How many drinks containing alcohol do you have on a typical day when you are drinking?: 1 or 2 3. How often do you have six or more drinks on one occasion?: Less than monthly Total Score: 2 ROSARIO-7 AMB Questionnaire ROSARIO-7 Date ROSARIO - 7 assessed: 12/03/24 Feeling nervous, anxious, or on edge: 0 = Not at all Not being able to stop or control worryin = Not at all Worrying too much about different things: 0 = Not at all Trouble relaxin = Not at all Being so restless that it is hard to sit still: 0 = Not at all Becoming easily annoyed or irritable: 0 = Not at all Feeling afraid as if something awful might happen: 0 = Not at all Total ROSARIO-7 score (0-4 normal; 5-9 mild; 10-14 moderate; 15-21 severe): 0 Source: Developed by Drs. Constantin Toro, Agueda Dejesus, Greg Lutz and colleagues, with an educational lynsey from [employer]. Physical exam (Primary Care) Vital Signs: Last Vital Signs Temp 97.5 F 12/03/24 15:41 Pulse 63 12/03/24 15:41 BP 122/76 12/03/24 15:41 Pulse Ox 99 12/03/24 15:41 Oxygen Delivery Method Room Air 12/03/24 15:41 BMI result Body Mass Index 34.8 Tobacco/Smoking Status: Tobacco use Status Tobacco use date assessed 12/03/24 12/03/24 15:39 Patient Tobacco Use Status Never used Tobacco 12/03/24 15:39 e-Cigarette/Vaping Use Never Used 12/03/24 15:39 PHQ-9: PHQ-9 Score PHQ-9: Total score 0 12/03/24 15:39 Thrive Assessment: Date of Thrive Assessment Date Thrive assessed 12/03/24 12/03/24 15:39 Coding Level of Care Code New Pt Prev Care 40-64y(96218) Diagnoses Annual physical exam Z00.00 Assessment & Plan Assessment & Plan (1) Annual physical exam: Code(s): Z00.00 - Encounter for general adult medical examination without abnormal findings Plan: History of Present Illness - The patient is a 54-year-old female presenting with concerns regarding weight gain, postmenopausal symptoms, and thyroid status. - Significant weight gain of 40 pounds over several years coincides with postmenopausal onset at around age 50. Related symptoms include insomnia, generalized aches, and pains. - Elevated thyroid antibodies detected in past assessments, with no hypo or hyperthyroidism diagnosis, but resolving thyroiditis was noted. - Prior hip pain led to an x-ray showing degenerative arthritic changes; the pain has since improved. - Previous fungal ear infection resulted in chronic issues with scaly, itchy, and intermittently wet ear canal. - Eliminated caffeine, sugar, and alcohol for six months in an effort to lose weight, observed intermittent heart palpitations with caffeine. - The patient drinks alcohol socially and does not smoke. Uninterested in pharmacological weight management interventions like Ozempic. - Requires renewal of EpiPen and rescue inhaler due to allergic conditions. 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 - Enjoys gardening and yard work as primary physical activity; aiming to incorporate regular walking into daily routine. - Engaged in dietary modifications for weight control, now includes caffeine. - Pursued dietary changes previously excluding caffeine, sugar, and alcohol for weight management. Review of Systems - General: Reports weight gain, fatigue. - ENMT: Reports ear issues with previous fungal infection leading to scaly, itchy, and intermittently wet ear canal. - Cardiovascular: Denies palpations apart from caffeine-related instances. - Respiratory: Denies chronic issues; uses rescue inhaler for allergy-induced symptoms. - Musculoskeletal: Reports hip pain improving but noted arthritic and degenerative changes. Reports aching in feet and calves. - Neurological: Denies major changes in neurological status, but reports insomnia. - Endocrine: Reports history of elevated thyroid antibody, denies thyroid-related symptoms as current coremaker input was status quo. - Psychiatric: Denies overt depression, although job-related stress and fatigue influence mood. Physical Exam General: Cooperative and healthy appearing Nutritional Appearance: Well nourished Orientation/consciousness: Patient oriented x3 Limitations: No limitations Head: Normal to inspection General: Appearance normal, both eyes and all related structures Neck: Normal visual inspection Chest: Normal palpation of entire chest wall Respiratory: N ormal respiratory effort Neurology: Patient oriented x3, reports tiredness and aches in feet and calves. Results - Screening Tests: Thyroid scan (previous), mammogram (normal), colonoscopy (done), x-ray (hip arthritic changes) Plan 1. Postmenopausal Syndrome - Perform blood work to check thyroid and glucose levels. - Continue dietary changes with possible caffeine reintroduction if palpitations allow. - Continue PRODUCT INTRODUCTION MANAGER and consider bone density evaluation. 2. Elevated Thyroid Antibody - Repeat thyroid function tests. 3. Osteoarthritis With Degenerative Changes - No further action as hip improvements noted, no therapy desired. 4. Fungal Otitis Externa - Continue hydrocortisone and post-shower ear canal drying. 5. Overweight/Obesity - Maintain reduced sugar intake, increase activity, declined medications. 6. Insomnia - Address associated menopausal symptoms. 7. Allergic Rhinitis - Continue current EpiPen and inhaler use, renew prescriptions. Discussion Notes During the consultation, I discussed the patient's various health concerns, focusing on weight gain, postmenopausal symptoms, and thyroid status. We reviewed her previous attempts at dietary changes, aiming for reduced sugar and caffeine, and encouraged ongoing physical activity. I ordered blood work to monitor thyroid and glucose levels, considering her history of elevated antibodies and past resolving thyroiditis. We addressed her foot and calf pain, deciding against physical therapy currently. We discussed her fungal ear history, recommending ongoing management with hydrocortisone cream. For her concerns about weight gain, we explored lifestyle modifications and ruled out pharmacological interventions like Ozempic at this time. Finally, I renewed her EpiPen and rescue inhaler prescriptions to manage her allergic symptoms and provided guidance on managing her ear condition. Patient Instructions - Follow up with blood work as ordered. - Consider reintroducing caffeine unless heart palpitations occur. - Maintain diet low in sugar and carbohydrates and include regular physical activities. - Use hydrocortisone cream and ensure ears are dry after bathing. - Continue PRODUCT INTRODUCTION MANAGER exams regularly and schedule bone density testing. - Refill and carry your EpiPen and inhaler for allergic reactions. - If any new symptoms or concerns arise, please contact us immediately. Orders: Orders Basic Metabolic Panel Today Z00.00 - Encounter for general adult medical examination without abnormal findings Complete Blood Count no Diff Today Z00.00 - Encounter for general adult medical examination without abnormal findings UA and rflx microscopic Today Z00.00 - Encounter for general adult medical examination without abnormal findings Liver Panel Today Z00.00 - Encounter for general adult medical examination without abnormal findings Lipid Panel Today Z00.00 - Encounter for general adult medical examination without abnormal findings Thyroid Stimulating Hormone Today Z00.00 - Encounter for general adult medical examination without abnormal findings Medications: New epinephrine 0.3 mg (0.3 mL) IM DIRECTED 2 ea 1RF
[2024-12-03 15:41] VITALS: BP 122/76; PULSE 63; TEMP 36.4; O2SAT 99; BMI 34.8
--- OUTSIDE RECORDS SUMMARY | 2024-12-03 17:10 | XMS_ITS | Continuity of Care Document ---
Author Organization [facility] [address] [place] [address] Phone [phone] Care Team Providers Care Elementary Ell Teacher Name Role Phone Michael Sheehan M.D. Care Team Information Receiv er [phone] Problems Active Problems Provider Date Pure hypercholesterolemia Misa Delgado Onset: 01/31/2024 Acute thyroiditis Vaibhav Maurice M.D. Onset: 01/31/2024 Vitamin D deficiency Vaibhav Maurice M.D. Ons et: 01/31/2024 Obesity Vaibhav Maurice M.D. Onset: 0 01/31/2024 Fatigue Vaibhav Maurice M.D. Onset: 0 01/31/2024 Stef thyroiditis Vaibhav Maurice M.D. 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 Tobacco Use Start: Unknown Never Smoked Cigarettes ETOH Use Occasionally consumes alcoho l Allergies and adverse reactions Description No Known Drug Allergies Medications Active Medications SIG Qnty Indications Ordering Provider Date Hanna [id number] Tablets 1 by mouth prn Unknown Vital Signs Date Vital Result Comment 02/01/2024 9:27am BP Systolic 130 mmHg BP Diastolic 80 mmHg Heart Rate 72 /min Height 66 inches 5'6 Weight 208.00 lb BMI (Body Mass Index) 33.6 kg/m2 Medical Devices Description No Information Available Encounters Type Date Location Provider Dx Diagnosis Office Visit 02/01/2024 9:30a Main Office Vaibhav Maurice M.D. E06.3 Autoimmune thyroiditis Assessments Date Code Description Provider 02/01/2024 E06.3 Stef thyroiditis Vaibhav maxwell M.D. Plan of Treatment No Information Available Functional Status Description No Information Available Mental Status Description No Information Available Referrals Description No Information Available
== END 2024-12-03 15:59 | disposition home or self-care (01) ==
LOC: HO.HMCHD 15:28
PROVIDERS: PCP Internal Medicine; Visit Provider Internal Medicine
DX: Z00.00 Encounter for general adult medical examination without abnormal findings (principal)

== ENCOUNTER → 2024-12-03 15:27 | Outpatient (BNVA) | payer OTHER, SELFPAY | PROVIDERS: PCP Internal Medicine; Visit Provider Internal Medicine | DX: Z13.89 Encounter for screening for other disorder (principal) ==

== ENCOUNTER 2025-01-25 10:24 | Outpatient (AMB) | payer OTHER, SELFPAY ==
[2025-01-25 10:26] VITALS: BP 136/74; PULSE 74; TEMP 36.7; O2SAT 98; BMI 35.9
--- NOTE | 2025-01-25 10:26 | AM.OFFWIN_ITS ---
Intake Vital Signs 01/25/25 10:26 Height 5 ft 5 in Weight 216 lb BMI 35.9 BP 136/74 Blood Pressure Location Lt brachial Position Sitting Pulse 74 Pulse Source Pulse Oximeter Temp 98.1 F Temp Source Oral Pulse Oximetry (%) 98 Oxygen Delivery Method Room Air Intake Visit Reasons: EP-rt shoulder insect bite Patient Tobacco Use Status: Never used Tobacco Family Practitioner Required: No Is last menstrual period known: No Post menopausal: Yes Patient : No Allergies almond Allergy (Severe, Verified 01/25/25 10:34) Anaphylaxis fish derived (fish) Allergy (Severe, Verified 01/25/25 10:34) Anaphylaxis kiwi Allergy (Severe, Verified 01/25/25 10:34) Anaphylaxis Do you need a note to return to daycare/school/sports/work: No HPI HPI Comments History of Present Illness Details History - The patient is a 54-year-old female pr esenting with evaluation of skin lesions with burning and itching sensation. - The patient went camping in [place] and noticed a spot on her skin, initially thought to be sunburn, but later suspected to be a bite. - A new area of redness developed two da ys ago, extending towards the neck. - The lesions burn but have not crusted or blistered. - The patient denies joint pain and fati tom. - She denies new lotions, soaps, deterge nts, foods, clothes, medications, deodorants, or pets. - She denies tick bites, joint pain, fev er, chills, CP, SOB, abd pain, n/v/d. Physical Exam General: Cooperative, healthy appearing, comfortable, no acute distress and well developed Orientation: Patient oriented x3 Limitations: No limitations Neck: Normal visual inspection and Yes full ROM Respiratory: Normal respiratory effort and able to speak in complete sentences. Clear to auscultation bilaterally. No w/r/r noted. Cardiovascular: RRR, no m/r/g noted. Normal S1 and S2 Skin: Oval shaped erythematous raised rash on the right posterior shoulder with 4 black crusted spots. A second cluster of erythematous raised closed dry vesicles and several scattered few singles lesions noted on the anterior shoulder. No discharge or bleeding. No flaking noted. Patient was informed and verbally consented to the use of an ambient scribe for clinic note documentation during this visit [facility] Medical History FEDE II (cervical intraepithelial neoplasia II) Thyroiditis Asthma Surgical History History of colonoscopy (~02/17/21) Hx of section Family History (Updated 12/03/24 @ 15:45 by Edelmira Elmore MA) Maternal Grandmother Breast cancer Maternal Grandfather Lymphoma Mother No problems noted. Father No problems noted. 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 Sexual orientation: Straight/Heterosexual Gender identity: Female Cognitive needs: No Hearing needs: No Vision needs: Yes (reading glasses) Female Reproductive History Menstrual Age of Menarche: 12 Review of Systems Const All systems reviewed & are unremarkable except as noted in HPI and below Physical Exam Vital Signs: Last Vital Signs Temp 98.1 F 01/25/25 10:26 Pulse 74 01/25/25 10:26 BP 136/74 01/25/25 10:26 Pulse Ox 98 01/25/25 10:26 Oxygen Delivery Method Room Air 01/25/25 10:26 BMI result Body Mass Index 35.9 Assessment & Plan Assessment & Plan (1) Rash: Code(s): R21 - Rash and other nonspecific skin eruption Plan Most likely shingles vs bug bite vs contact dermatitis vs cellulitis plan- - Bactroban ointment to the areas TID for a week - Valtrex 1 gm TID for 7 days - prednisone burst for 5 days - tylenol or motrin as needed for pain - follow up with PCP Medications: New prednisone 40 mg (2 x 20 mg) PO DAILY 10 tabs 0RF 5 days mupirocin 2% 1 appl topical TID 22 grams 0RF valacyclovir 1,000 mg PO Q8H 21 tabs 0RF 7 days Coding Level of Care Code Est Pt Level 3 (93209) Diagnoses Rash R21
--- OUTSIDE RECORDS SUMMARY | 2025-01-25 10:34 | XMS_ITS | Continuity of Care Document ---
Author Organization [facility] [address] [place] [address] Phone [phone] Care Team Providers Care Corporate Meeting Planner Name Role Phone Michael Sheehan M.D. Care Team Information Receiv er [phone] Problems Active Problems Provider Date Pure hypercholesterolemia [...] SIG Qnty Indications Ordering Provider Date Hanna [id number] Tablets 1 by mouth prn Unknown Vital [...]
== END 2025-01-25 11:23 | disposition home or self-care (01) ==
PROVIDERS: PCP Internal Medicine; Visit Provider Physician Assistant Medical
DX: R21 Rash and other nonspecific skin eruption (principal)

== ENCOUNTER → 2025-01-25 10:24 | Outpatient (BNVA) | payer OTHER, SELFPAY | PROVIDERS: PCP Internal Medicine; Visit Provider Physician Assistant Medical | DX: R21 Rash and other nonspecific skin eruption (principal) | CPT/HCPCS: 99212 ==

== ENCOUNTER 2025-02-28 09:30 | Outpatient (REF) | payer OTHER, SELFPAY ==
[2025-02-28 10:28] LABS: Hematocrit 42.7 % (37.0-47.0); Hemoglobin 14.4 g/dl (12.0-16.0); Mean Corpuscular HGB Conc 33.7 g/dl (31.0-35.0); Mean Corpuscular Hemoglobin 29.1 pg (27.0-33.0); Mean Corpuscular Volume 86.3 fL (80.0-98.0); NRBC Abs Auto 0.000 X10*3/uL (0.0-0.012); NRBC Pct Auto 0.0 /100WBC (0.0-0.2); Platelet Count 322 X10*3/uL (160-400); Red Blood Count 4.95 X10*6/uL (4.20-5.50); White Blood Count 5.4 X10*3/uL (4.8-10.8)
[2025-02-28 11:10] LABS: Alanine Aminotransferase 25 U/L (0-31); Albumin Level 4.8 g/dL (3.5-5.0); Alkaline Phosphatase 104 U/L (39-117); Anion Gap 11 (12-20); Aspartate Amino Transferase 26 U/L (5-31); Blood Urea Nitrogen 15 mg/dL (9-16); Calcium 9.3 mg/dL (8.4-10.2); Carbon Dioxide 25 mmol/L (22-29); Chloride 107 mmol/L (96-108); Cholesterol 213 mg/dL (<200); Estimated Glomerular Filt Rate > 60; HDL Cholesterol 61 mg/dL (>40); Potassium 4.2 mmol/L (3.3-5.1); Sodium 139 mmol/L (135-145); Total Protein 8.2 g/dL (6.5-8.0); Triglycerides 79 mg/dL (<150)
[2025-02-28 11:27] LABS: Thyroid Stimulating Hormone 1.97 uIU/mL (0.32-4.0)
== END 2025-02-28 09:31 | disposition home or self-care (01) ==
LOC: HO.LAB 09:30
PROVIDERS: PCP Internal Medicine; Visit Provider Internal Medicine
DX: Z00.00 Encounter for general adult medical examination without abnormal findings (principal)
CPT/HCPCS: 36415; 80048; 80061; 80076; 81003; 84443; 85027